=== PATIENT | male | born 1975 | race Caucasian/White ===

== ENCOUNTER 2021-05-09 00:55 | Day surgery (SDC) | payer BC, SELFPAY ==
[2021-05-01 13:11] VITALS: BMI 26.7
--- NOTE | 2021-05-08 20:09 | PM.HPGS ---
History of Present Illness History of Present Illness Consent: Risks, benefits, and alternatives have been discussed and questions answered. Patient agrees to proceed with procedure. Chief complaint: dysphagia, abdominal pain Narrative: Charlie Dow is a 45 year old male who underwent fundopllication for a large hiatal hernia in 2012. Now he is having difficulty swallowing solid food. things like meat seem to get stuck then he will need to stop eating for a few minutes. He also has what feels like spasm in his chest if he drinks cold liquids. At times, even if he is not eating, he will have a severe pain in the epigastric area that will last up to 30 minutes. Review of Systems Review of Systems: All systems reviewed & are unremarkable except as noted in HPI and below PMFSH Past Medical History Medical History History of hepatitis C Rheumatoid arthritis Surgical History Surgical History History of cholecystectomy History of fundoplication Family History Family History Mother Hypertension Sibling Patient's sister is in good health Patient's brother is in good health Family history of lupus erythematosus Other Diabetes mellitus Family history of cardiovascular disease Family history of gastrointestinal disorder Social History Social History Smoking packs per day: 1 Smoking cigarettes per day: 20.0 Years smoked: 20 Smoking pack-years: 20.00 Smoking status: Former smoker Tobacco type: cigarettes and e-cigarettes/vaping Second hand tobacco smoke exposure: No Smoking end date: 09/07/11 Alcohol intake: current Substance use: current Substance use type: marijuana Last use: 05/01/21 Living arrangements: with family Gender identity (if verbalized by the patient): Male Sexual Orientation (if Verbalized by the Patient): Straight or Heterosexual Spiritual care concerns: No Meds Home Medications and Allergies Home Medications Medication Instructions Recorded Confirmed Type No Home Medications 04/24/21 05/01/21 History Allergies Allergy/AdvReac Type Severity Reaction Status Date / Time Penicillins Allergy Severe Unknown Verified 05/09/21 08:14 Exam Const: General: alert Orientation/consciousness: patient oriented x3 Resp: Auscultation: clear to auscultation bilaterally Cardio: Rhythm: regular rhythm GI: GI Palp: Yes Soft to palpation and No Tenderness to palpation present (GI) Neuro: General: patient oriented x3 Assessment and Plan Assessment and plan (1) Dysphagia: Code(s): R13.10 - Dysphagia, unspecified Status: Acute Assessment and Plan: EGD with possible biopsy or dilatation or cautery.
[2021-05-09 08:15] VITALS: BP 130/86; PULSE 60; RESP 16; TEMP 36.1; O2SAT 98
[2021-05-09] MEDS: LACTATED RINGERS 1,000 ML 150 ML IV CONT (08:23)
--- NOTE | 2021-05-09 09:07 | WPDANESEPPF ---
Anes - Initial Pre Proc Eval Procedure: Operation Date: 05/09/21 09:30 Proposed Procedures p Esophagogastroduodenoscopy - Viral Coffman MD Date/Time: 05/09/21 09:07 Surgeon: Viral Coffman MD Pre Op Diagnosis: dysphagia, abdominal pain Patient Data Age: 45 Gender: M Height: 1.83 m Weight: 91.9 kg Last Vital Signs Temp 97.0 F L 05/09/21 08:15 Pulse 60 05/09/21 08:15 Resp 16 05/09/21 08:15 BP 130/86 05/09/21 08:15 Pulse Ox 98 05/09/21 08:15 Allergies Allergy/AdvReac Type Severity Reaction Status Date / Time Penicillins Allergy Severe Unknown Verified 05/09/21 08:14 Home Medications Medication Instructions Recorded Confirmed Type No Home Medications 04/24/21 05/01/21 History Patient hx anesthesia problems: none Family hx anesthesia problems: none PMFSH Past Medical History Medical History (Updated 05/08/21 @ 20:11 by Viral Coffman MD) History of hepatitis C Rheumatoid arthritis Surgical History Surgical History History of cholecystectomy History of fundoplication Family History Family History Mother Hypertension Sibling Patient's sister is in good health Patient's brother is in good health Family history of lupus erythematosus Other Diabetes mellitus Family history of cardiovascular disease Family history of gastrointestinal disorder Social History Social History Smoking packs per day: 1 Smoking cigarettes per day: 20.0 Years smoked: 20 Smoking pack-years: 20.00 Smoking status: Former smoker Tobacco type: cigarettes and e-cigarettes/vaping Second hand tobacco smoke exposure: No Smoking end date: 09/07/11 Alcohol intake: current Substance use: current Substance use type: marijuana Last use: 05/01/21 Living arrangements: with family Gender identity (if verbalized by the patient): Male Sexual Orientation (if Verbalized by the Patient): Straight or Heterosexual Spiritual care concerns: No Anes - Eval Final PreProcedure Day of Procedure 05/09/21 09:07 Patient weight: overweight Heart: regular rate and rhythm Lungs: clear to auscultation Airway: Mallampati scale class II Neurological: alert and oriented Last oral intake: >/= 8 hours ASA classification: II Emergent: no Anesthetic plan: proceed Anesthesia type and monitoring: general GIVS and standard monitoring Informed Consent: The patient's anesthetic plan and its attendant risks and benefits were discussed with the patient/family/POA. Questions were solicited and answers provided to the satisfaction of the patient/family/POA.
[2021-05-09 09:47] VITALS: BP 115/75; PULSE 57; RESP 19; O2SAT 97
[2021-05-09 09:57] VITALS: BP 129/88; PULSE 51; RESP 14; O2SAT 100
[2021-05-09 10:07] VITALS: BP 129/88; PULSE 48; RESP 14; O2SAT 100
== END 2021-05-09 10:25 | disposition home or self-care (01) ==
PROVIDERS: PCP Family Medicine; Visit Provider Internal Medicine Gastroenterology
PROC: 0DJ08ZZ Inspection of Upper Intestinal Tract, Via Natural or Artificial Opening Endoscopic (ICD-10-PCS; CPT 43235; principal; 2021-05-09 09:30)
DX: R13.10 Dysphagia, unspecified (principal); R10.13 Epigastric pain; K31.84 Gastroparesis; K21.9 Gastro-esophageal reflux disease without esophagitis; M06.9 Rheumatoid arthritis, unspecified; Z86.19 Personal history of other infectious and parasitic diseases; Z90.49 Acquired absence of other specified parts of digestive tract; Z87.891 Personal history of nicotine dependence
CPT/HCPCS: 43239; 87081; 88305; J2704; J7120

== ENCOUNTER 2021-06-10 09:44 | Outpatient (CLI) | payer BC, SELFPAY ==
--- NOTE | ~2021-06-10 | NM_ITS ---
EXAM: NM gastric emptying study DATE: 06/10/2021 14:49 INDICATION: Foreign body in stomach. TECHNIQUE: A gastric emptying study was performed using the methodology of Torin MORENO, et al. J Nucl Med 2007; 48:568-572. The patient was given a meal consisting of 2 scrambled eggs labeled with 0.99 mCi Tc-99m sulfur colloid, 2 slices of toast, two packages of jam, and approximately 120 mL of water. Simultaneous anterior and posterior 1-min images of the abdomen were obtained with the patient supin e at multiple time points over a total period of 4 hours. The geometric mean of anterior and posterio r views was determined, and the percentage retention was calculated for each time point. COMPARISON: None. FINDINGS: Gastric retention of the radiotracer-labeled meal was 22%, 10%, and 2% at the 1-hour, 2-hour, and 4-h our time points, respectively. With this technique, apparent rapid gastric emptying is suggested by < 30% gastric retention at 1 hour. Delayed gastric emptying is defined by gastric retention of >90% at 1 hour, >60% retention at 2 hours, or >10% retention at 4 hours. IMPRESSION: 1. Rapid gastric emptying. Reviewed, dictated and finalized at location B. IMPRESSION: 1. Rapid gastric emptying.
== END 2021-06-10 09:45 | disposition home or self-care (01) ==
LOC: ANHIMG 09:48
PROVIDERS: PCP Family Medicine; Visit Provider Internal Medicine Gastroenterology
DX: T18.2XXA Foreign body in stomach, initial encounter (principal); K31.84 Gastroparesis
CPT/HCPCS: 78264; A9541

== ENCOUNTER 2025-08-09 10:56 | Emergency (ER) | payer OTHER, SELFPAY ==
[2025-08-09 11:01] VITALS: BP 146/86; PULSE 62; RESP 18; TEMP 36.4; O2SAT 100
--- NOTE | 2025-08-09 11:06 | ED.DENTAL ---
HPI - Dental/Oral General Chief complaint: Dental/Oral Stated complaint: Swollen Mouth Time Seen by Provider: 08/09/25 11:05 Source: patient Mode of arrival: ambulatory Limitations: no limitations History of Present Illness HPI Narrative: 49-year-old male presents concern for left lower jaw swelling and pain. Reports he woke up with it this morning. He reports he does have bad teeth. He has not tried to eat anything this morning so he does not have pain with chewing. He denies fever, body aches, chills, sweats, problems swallowing. MD Complaint: tooth pain Related Data Allergies Allergy/AdvReac Type Severity Reaction Status Date / Time Penicillins Allergy Mild Rash Verified 08/09/25 10:58 Review of Systems Review of Systems: CONSTITUTIONAL: Denies malaise, chills, sweats, or fever. EYES: Denies visual changes ENT: Denies rhinorrhea, congestion, sinus pain, otalgia or sore throat. Reports left jaw pain and swelling CARDIOVASCULAR: Denies chest pain, palpitations RESPIRATORY: Denies cough or dyspnea. SKIN: Denies rash or itching. MUSCULOSKELETAL: Denies myalgia. NEUROLOGIC: Denies numbness, weakness, or headache. All systems reviewed & are unremarkable except as noted in HPI and below PMFSH Past Medical History Medical History ADD (attention deficit disorder) Personal history of nicotine dependence Nicotine dependence, cigarettes, uncomplicated Major depressive disorder, single episode, unspecified Anxiety disorder, unspecified History of hepatitis C Rheumatoid arthritis Surgical History Surgical History History of cholecystectomy History of fundoplication Family History Family History Mother Hypertension Sibling Patient's sister is in good health Patient's brother is in good health Family history of lupus erythematosus Other Diabetes mellitus Family history of cardiovascular disease Family history of gastrointestinal disorder Social History Social History Social History: 04/20/25 very confident with medical forms Smoking packs per day: 1 Smoking cigarettes per day: 20.0 Years smoked: 20 Smoking pack-years: 20.00 Smoking status: Former smoker Tobacco type: cigarettes, e-cigarettes/vaping and smokeless tobacco Second hand tobacco smoke exposure: No Smoking end date: 09/07/11 Alcohol intake: current Alcohol use details: rare Substance use: current Substance use type: marijuana Lack of Transportation: No Lack of Food: Never True Current Housing: I Have Housing Concerned About Future Housing: No Difficulty Paying Gas/Electric Bills: No Difficulty Paying for Meds: No Currently Unemployed: No Education: Don't Know Difficulty w/ Childcare or Family Care: No Living arrangements: with family Occupation/Education: occupation Gender identity (if verbalized by the patient): Male Sexual Orientation (if Verbalized by the Patient): Straight or Heterosexual Spiritual care concerns: No Comments At time of signature, agree with nursing past medical, surgical, social and family history. There is no relevant family history pertinent to the presenting complaint Exam Narrative: GENERAL: Well-appearing, well-nourished, and in no acute distress. HEAD: Normocephalic, atraumatic. EYES: PERRLA, sclera clear ENT: Nares clear, turbinates pink, no rhinorrhea or epistaxis. Mucous membranes moist. TM pearly horvath with sharp light reflex bilaterally; no tragal tenderness. Oropharynx without erythema or lesions. Tonsils not enlarged and without exudate. Missing teeth, broken teeth, caries, abscess visible adjacent to teeth 21 and 20, left jaw swelling noted NECK: Supple. No lymphadenopathy. CHEST: No respiratory distress. Speaks in full sentences. HEART: Regular rate and rhythm. SKIN: Warm, dry, no visible rash. NEURO: Alert and oriented x3. PSYCH: Normal mood and affect Course Course Level of Care: Express Care Visit Vital Signs Vital signs: Vital Signs Temperature 97.6 F 08/09/25 11:01 Pulse Rate 62 08/09/25 11:01 Respiratory Rate 18 08/09/25 11:01 Blood Pressure 146/86 H 08/09/25 11:01 Pulse Oximetry 100 08/09/25 11:01 Oxygen Delivery Room Air 08/09/25 11:01 Temperature 97.6 F 08/09/25 11:01 Pulse Rate 62 08/09/25 11:01 Respiratory Rate 18 08/09/25 11:01 Blood Pressure 146/86 H 08/09/25 11:01 Pulse Oximetry 100 08/09/25 11:01 Oxygen Delivery Room Air 08/09/25 11:01 Procedures Abscess I/D oral: Date of Incision: 08/09/25 Time of Incision: 11:12 Side (if applicable): left Local Anesthetic: lidocaine 1% Amount of anesthesia used (mL): 3 Technique: needle aspiration Amount of fluid expressed (mL): 3 Irrigation: No Packing used?: none I&D Results: Pus Nerve Block Nerve Block 1: Nerve block date: 08/09/25 Nerve block time: 11:13 Time out performed: Yes Local Anesthetic: lidocaine 1% Amount of anesthesia used (mL): 3 Side: left Intraoral Nerve Block: inferior alveolar Procedure Successful: Yes Patient Tolerated Procedure: well Complications: none MDM Differential Diagnosis Differential Diagnosis: I evaluated this patient in the [facility] care. History is obtained from patient who is an independent historian and physical exam was performed.? Available medical records were reviewed. ? Exam findings and relevant testing show no acute concerns or changes; patient is non-toxic appearing and is in no distress. ? Patients pain and complaint coupled with physical findings are consistent with dentalgia. There are no focal signs of space occupying lesions that are compromising to the airway; no dysphagia, odynophagia, dysphonia, or dyspnea. No uvular deviation or soft palate edema. Patient is non-toxic appearing. The floor of the mouth is soft with no signs of Travis's Angina; no induration below mandible, no neck pain. Patient is without trismus or drooling and able to swallow secretions. Patient is felt appropriate for discharge home with dental follow up. Differential diagnosis and treatment plan were discussed with the patient. Patient agrees with discussion and after shared medical decision making agrees with plan of care. All questions were answered to the patient's satisfaction. Patient is appropriate for outpatient treatment and follow-up. Discharge Plan Discharge Clinical Impression: Dental abscess Patient Disposition: Home Condition: Stable Instructions: Antibiotic Form, Dental Abscess (ED) Additional Instructions: Take antibiotic as directed Avoid temperature extremes May apply heat or ice to the face Gentle brushing and flossing Take 2 extra strength Tylenol, 4 ibuprofen, 80 mg of caffeine at same time. You can do this every 6 hours. Do not do this for more than 2 - 3 days. You can substitute 25 mg Benadryl at nighttime for caffeine to help you sleep. Do this for no more than 3 days. Follow-up with the dentist as soon as possible - see the list provided Patient Language: Zambian Prescriptions: New clindamycin HCl 300 mg capsule 300 mg PO Q8H 7 Days Qty: 21 0RF ibuprofen 800 mg tablet 800 mg PO Q6H PRN (Reason: pain) Qty: 30 0RF No Action clonazepam 1 mg tablet 1 mg PO BID PRN (Reason: anxiety) Qty: 60 5RF dextroamphetamine-amphetamine [Adderall XR] 20 mg capsule,extended release 24hr 20 mg PO DAILY Qty: 30 0RF Follow-up/Referrals: PHYSICIAN,CABANA ATTENDANT [Primary Care Provider, Internal Medicine] Stand Alone Forms: Work/School Release IP Time of Disposition: 11:25
--- OUTSIDE RECORDS SUMMARY | 2025-08-09 12:33 | XMS_ITS | Encounter Summary ---
Author Organization [facility] Address [facility] [place] [address] Care Team Providers Care Technical Publications Manager Name Role Phone Charlie Tejada MD Primary Care Provider [phone] None, Provider Primary Care Provider Reny Ibarra PA-C Primary Care Provider [phone] Encounter Details Date Type Department Care Team (Late st Contact Info) Description 03/23/2013 Abstract [facility] CONVERSION [address] [place] [address] , Generic Conversion, Social History Tobacco Use Types Packs/Day Years Used Date Smoking Tobacco: Never Assessed Sex and Gender Information Value Date Recorded Sex Assigned at Not on file Legal Sex Male 6:53 PM CDT Gender Identity Not on file Sexual Orientation Not on file documented as of this encounter Plan of Treatment Not on file documented as of this encounter Visit Diagnoses Not on filedocumented in this encounter Care Teams Technical Publications Manager Relationship Specialty Start Date End Date Charlie Tejada MD [address] [place] [id number] PCP - General 11/18/12 03/14/19 None, ProviderMD PCP - General 03/15/19 02/14/23 Reny Jeong PA-C [address] [place], [place] [address] [place] [address] PCP - General PHYSICIAN COMMERCIAL REVIEW APPRAISER 02/15/23 documented as of this encounter
--- OUTSIDE RECORDS SUMMARY | 2025-08-09 12:33 | XMS_ITS | Clinical Summary ---
Author Organization [facility] Address [facility] [place] [address] Care Team Providers Care Supervisor Delivery Department Name Role Phone Reny Jeong PA-C Primary Care Provider [phone] Allergies Active Allergy Reactions Criticality Noted Date Comments Penicillins Unknown 03/15/2019 Medications oxyCODONE-aceta minophen (PERCOCET) 5-325 MG tablet Take 1-2 tablets by mouth every 6 (six) hours as needed for Pain. 20 tablet 03/15/2019 Active Immunizations Immunization Administration Dates Next Due Tdap (Boostrix) 03/15/2019 Social History Tobacco Use Types Packs/Day Years Used Date Smoking Tobacco: Never Smokeless Tobacco: Never Tobacco Cessation:Counseling Given: Not Answered Alcohol Use Standard Drinks/Week Comments No 0 (1 standard drink = 0.6 oz pur e alcohol) Sex and Gender Information Value Date Recorded Sex Assigned at Not on file Legal Sex Male 6:53 PM CDT Gender Identity Not on file Sexual Orientation Not on file Last Filed Vital Signs Vital Sign Reading Time Taken Comments Blood Pressure 131/84 02/15/2023 3:43 PM CDT Pulse 53 02/15/2023 3:43 PM CDT Temperature 36.6 C (97.8 F) 02/15/2023 3:43 PM CDT Respiratory Rate 16 02/15/2023 3:43 PM CDT Oxygen Saturation 99% 02/15/2023 3:43 PM CDT Inhaled Oxygen Concentration - - Weight 83 kg (183 lb) 02/15/2023 2:22 PM CDT Height 182.9 cm (6') 02/15/2023 2:22 PM CDT Body Mass Index 24.82 02/15/2023 2:22 PM CDT Plan of Treatment Health Maintenance Due Date Last Done Comments Colorectal Cancer Screening Colonoscopy (10 Years) 1977 Annual Physical 1980 Hepatitis C 1995 Hepatitis B Vaccines (1 of 3 - 19+ 3-dose series) 1996 COVID-19 Vaccine (3 2024-2 6 season) 2025 02/21/2021, 01/26/2021 Influenza Adult (#1) 2025 DTaP, Tdap and Td Vaccines ( 2 - Td or Tdap) 03/15/2029 03/15/2019 Hepatitis A Vaccines Aged Out No long er eligible based on patient's age to complete this topic Meningococcal B Vaccine Aged Out No l onger eligible based on patient's age to complete this topic Meningococcal Vaccine Aged Out No marcelino kassi eligible based on patient's age to complete this topic Pneumococcal Vaccine: Pediatrics (0 to 5 Years) and At-Risk Patients (6 to 49 Years) Aged Out No longer eligible b ased on patient's age to complete this topic RSV Immunizations Under 20 Months Aged Out No longer eligible b ased on patient's age to complete this topic Insurance [employer] Care Teams Supervisor Delivery Department Relationship Specialty Start Date End Date Reny Jeong PA-C [facility] [place] [address] PCP - General PHYSICIAN MUSIC WORKER 02/15/23
== END 2025-08-09 11:27 | disposition home or self-care (01) ==
PROVIDERS: Emergency Provider Nurse Practitioner
DX: K04.7 Periapical abscess without sinus (principal); Z87.891 Personal history of nicotine dependence; F98.8 Other specified behavioral and emotional disorders with onset usually occurring in childhood and adolescence; M06.9 Rheumatoid arthritis, unspecified; F41.9 Anxiety disorder, unspecified
CPT/HCPCS: 41800; 99213; A9270; G0463; J2003